=== PATIENT | female | born 1950 | race Two or more races ===

== ENCOUNTER 2017-07-24 07:08 | Outpatient (CLI) | payer OTHER ==
[~2017-07-24 07:08] MED LIST: ASA81 MG; CEFADROXIL500 MG PO; SMZ-TMP DS 800-1 TAB PO; TOPROL XL25 MG; URETRON DS1 TAB PO
== END 2017-07-24 07:27 | disposition home or self-care (01) ==
LOC: LAB 07:08
DX: I49.1 Atrial premature depolarization (principal); I49.3 Ventricular premature depolarization; I11.9 Hypertensive heart disease without heart failure; E78.2 Mixed hyperlipidemia; E56.8 Deficiency of other vitamins; R73.02 Impaired glucose tolerance (oral)

== ENCOUNTER 2017-08-03 15:33 | Outpatient (CLI) | payer OTHER | END 2017-08-03 15:53 | disposition home or self-care (01) | LOC: TOM 15:33 | DX: R91.1 Solitary pulmonary nodule (principal) ==

== ENCOUNTER 2017-09-14 16:48 | Emergency (ER) | payer OTHER ==
[~2017-09-14] VITALS: Ht 167.6 cm; Wt 56.2 kg
[2017-09-14] MEDS ORDERED: TRELEGY ELLIPT1 EACH (17:12)
== END 2017-09-14 19:56 | disposition home or self-care (01) ==
LOC: ER 16:48
DX: S83.8X2A Sprain of other specified parts of left knee, initial encounter (principal); X50.1XXA Overexertion from prolonged static or awkward postures, initial encounter; Y93.01 Activity, walking, marching and hiking; Y92.218 Other school as the place of occurrence of the external cause; Y99.8 Other external cause status

== ENCOUNTER 2017-09-21 07:36 | Outpatient (CLI) | payer OTHER ==
[~2017-09-21 07:36] MED LIST changes: +TRELEGY ELLIPT1 EACH
== END 2017-09-21 07:41 | disposition home or self-care (01) ==
LOC: LAB 07:36
DX: R91.1 Solitary pulmonary nodule (principal); Z20.1 Contact with and (suspected) exposure to tuberculosis

== ENCOUNTER → 2017-10-26 | Outpatient (CLI) | payer OTHER | END | disposition home or self-care (01) | LOC: LAB 15:55 | DX: N39.0 Urinary tract infection, site not specified (principal); D64.9 Anemia, unspecified; R10.13 Epigastric pain; E55.9 Vitamin D deficiency, unspecified ==

== ENCOUNTER → 2017-11-20 | Outpatient (CLI) | payer OTHER | END | disposition home or self-care (01) | LOC: LAB 09:08 | DX: D64.89 Other specified anemias (principal); N39.0 Urinary tract infection, site not specified; R10.9 Unspecified abdominal pain; E03.8 Other specified hypothyroidism; E78.4 Other hyperlipidemia; E55.9 Vitamin D deficiency, unspecified; R80.9 Proteinuria, unspecified; R73.09 Other abnormal glucose; I11.9 Hypertensive heart disease without heart failure; E78.2 Mixed hyperlipidemia; R73.02 Impaired glucose tolerance (oral); E56.8 Deficiency of other vitamins ==

== ENCOUNTER 2017-12-14 09:47 | Outpatient (CLI) | payer OTHER | END 2017-12-14 09:49 | disposition home or self-care (01) | LOC: LAB 09:47 | DX: R97.1 Elevated cancer antigen 125 [CA 125] (principal); N39.0 Urinary tract infection, site not specified ==

== ENCOUNTER → 2017-12-15 | Outpatient (CLI) | payer OTHER | END | disposition home or self-care (01) | LOC: MAMO-SONO 09:15 | DX: Z12.31 Encounter for screening mammogram for malignant neoplasm of breast (principal); N60.11 Diffuse cystic mastopathy of right breast; N60.12 Diffuse cystic mastopathy of left breast; R10.2 Pelvic and perineal pain ==

== ENCOUNTER → 2017-12-23 15:12 | Outpatient (CLI) | payer OTHER | END | disposition home or self-care (01) | LOC: LAB 15:12 | DX: R10.31 Right lower quadrant pain (principal); R10.32 Left lower quadrant pain ==

== ENCOUNTER 2017-12-28 09:08 | Outpatient (CLI) | payer OTHER | END 2017-12-28 09:20 | disposition home or self-care (01) | LOC: MRI 09:08 | DX: R97.1 Elevated cancer antigen 125 [CA 125] (principal); R10.31 Right lower quadrant pain; R10.32 Left lower quadrant pain | CPT/HCPCS: 72196; 74181 ==

== ENCOUNTER 2018-01-20 10:59 | Outpatient (CLI) | payer OTHER | END 2018-01-20 11:01 | disposition home or self-care (01) | LOC: LAB 10:59 | DX: R97.1 Elevated cancer antigen 125 [CA 125] (principal) ==

== ENCOUNTER 2018-03-23 10:20 | Outpatient (CLI) | payer OTHER | END 2018-03-23 10:36 | disposition home or self-care (01) | LOC: LAB 10:20 | DX: E78.2 Mixed hyperlipidemia (principal); I50.32 Chronic diastolic (congestive) heart failure; I34.0 Nonrheumatic mitral (valve) insufficiency; D64.89 Other specified anemias; N39.0 Urinary tract infection, site not specified; R10.84 Generalized abdominal pain; E03.8 Other specified hypothyroidism; E55.9 Vitamin D deficiency, unspecified; R80.8 Other proteinuria; E11.9 Type 2 diabetes mellitus without complications; I11.0 Hypertensive heart disease with heart failure ==

== ENCOUNTER 2018-07-13 15:12 | Outpatient (CLI) | payer OTHER | END 2018-07-13 18:00 | disposition home or self-care (01) | LOC: LAB 15:12 | DX: K72.01 Acute and subacute hepatic failure with coma (principal) ==

== ENCOUNTER 2018-09-11 09:13 | Outpatient (CLI) | payer OTHER | END 2018-09-11 09:22 | disposition home or self-care (01) | LOC: LAB 09:13 | DX: D64.89 Other specified anemias (principal); N39.0 Urinary tract infection, site not specified; R10.9 Unspecified abdominal pain; E03.8 Other specified hypothyroidism; E78.49 Other hyperlipidemia; R80.8 Other proteinuria; E11.9 Type 2 diabetes mellitus without complications; I10 Essential (primary) hypertension; I50.32 Chronic diastolic (congestive) heart failure ==

== ENCOUNTER 2018-09-15 08:44 | Outpatient (CLI) | payer OTHER | END 2018-09-15 12:02 | disposition home or self-care (01) | LOC: LAB 08:44 | DX: A31.0 Pulmonary mycobacterial infection (principal) ==

== ENCOUNTER 2019-01-05 08:07 | Outpatient (CLI) | payer OTHER | END 2019-01-05 08:32 | disposition home or self-care (01) | LOC: LAB 08:07 | DX: E78.2 Mixed hyperlipidemia (principal); E55.9 Vitamin D deficiency, unspecified; M06.4 Inflammatory polyarthropathy; M25.50 Pain in unspecified joint; E78.49 Other hyperlipidemia; M81.0 Age-related osteoporosis without current pathological fracture; E03.8 Other specified hypothyroidism; M54.2 Cervicalgia; I65.8 Occlusion and stenosis of other precerebral arteries; A31.2 Disseminated mycobacterium avium-intracellulare complex (DMAC) ==

== ENCOUNTER 2019-01-26 07:46 | Outpatient (CLI) | payer OTHER | END 2019-01-26 07:52 | disposition home or self-care (01) | LOC: LAB 07:46 | DX: D64.89 Other specified anemias (principal); N39.0 Urinary tract infection, site not specified; R10.84 Generalized abdominal pain; E03.8 Other specified hypothyroidism; E78.49 Other hyperlipidemia; Z98.49 Cataract extraction status, unspecified eye; Z13.6 Encounter for screening for cardiovascular disorders ==

== ENCOUNTER 2019-02-08 08:38 | Outpatient (CLI) | payer OTHER | END 2019-02-08 08:43 | disposition home or self-care (01) | LOC: LAB 08:38 | DX: A31.0 Pulmonary mycobacterial infection (principal); J44.1 Chronic obstructive pulmonary disease with (acute) exacerbation; E78.2 Mixed hyperlipidemia; K76.0 Fatty (change of) liver, not elsewhere classified ==

== ENCOUNTER 2019-07-05 10:12 | Outpatient (CLI) | payer OTHER | END 2019-07-05 10:43 | disposition home or self-care (01) | LOC: LAB 10:12 | DX: A31.0 Pulmonary mycobacterial infection (principal); J44.1 Chronic obstructive pulmonary disease with (acute) exacerbation ==

== ENCOUNTER 2019-07-06 09:44 | Outpatient (CLI) | payer OTHER | END 2019-07-06 09:52 | disposition home or self-care (01) | LOC: LAB 09:44 | DX: A31.0 Pulmonary mycobacterial infection (principal); J44.1 Chronic obstructive pulmonary disease with (acute) exacerbation ==

== ENCOUNTER 2019-07-12 08:51 | Outpatient (CLI) | payer OTHER | END 2019-07-12 08:58 | disposition home or self-care (01) | LOC: LAB 08:51 | DX: N39.0 Urinary tract infection, site not specified (principal); D64.89 Other specified anemias; E03.8 Other specified hypothyroidism; E78.49 Other hyperlipidemia; E11.9 Type 2 diabetes mellitus without complications; M10.9 Gout, unspecified ==

== ENCOUNTER → 2019-08-10 11:56 | Outpatient (CLI) | payer OTHER | END | disposition home or self-care (01) | LOC: LAB 08-09 12:07 | DX: Z12.11 Encounter for screening for malignant neoplasm of colon (principal) ==

== ENCOUNTER → 2020-05-21 14:54 | Outpatient (CLI) | payer OTHER | END | disposition home or self-care (01) | LOC: LAB 14:54 | PROVIDERS: ATTEND Radiology Diagnostic Radiology | DX: R91.8 Other nonspecific abnormal finding of lung field (principal) ==

== ENCOUNTER 2020-05-22 09:22 | Outpatient (CLI) | payer OTHER | END 2020-05-22 09:41 | disposition home or self-care (01) | LOC: TOM 09:22 | PROVIDERS: ATTEND Internal Medicine Pulmonary Disease | DX: R91.8 Other nonspecific abnormal finding of lung field (principal); R09.02 Hypoxemia; I26.90 Septic pulmonary embolism without acute cor pulmonale | CPT/HCPCS: 71260; Q9965 ==

== ENCOUNTER → 2020-07-07 | Outpatient (CLI) | payer OTHER | END | disposition home or self-care (01) | LOC: LAB 09:26 | PROVIDERS: ATTEND Internal Medicine Pulmonary Disease | DX: A31.2 Disseminated mycobacterium avium-intracellulare complex (DMAC) (principal) ==

== ENCOUNTER 2020-09-29 11:13 | Outpatient (CLI) | payer OTHER | END 2020-09-29 11:21 | disposition home or self-care (01) | LOC: RAD 11:13 | PROVIDERS: ATTEND Allergy & Immunology | DX: J01.90 Acute sinusitis, unspecified (principal) ==

== ENCOUNTER 2021-07-26 10:52 | Outpatient (CLI) | payer OTHER | END 2021-07-26 10:53 | disposition home or self-care (01) | LOC: NUCLEAR 10:52 | PROVIDERS: ATTEND Internal Medicine Pulmonary Disease | DX: J44.9 Chronic obstructive pulmonary disease, unspecified (principal); A31.0 Pulmonary mycobacterial infection ==

== ENCOUNTER → 2022-02-12 | Outpatient (CLI) | payer OTHER | END | disposition home or self-care (01) | LOC: NUCLEAR 02-05 09:00 | PROVIDERS: ATTEND Family Medicine | DX: M85.80 Other specified disorders of bone density and structure, unspecified site (principal); Z91.018 Allergy to other foods ==

== ENCOUNTER 2022-02-26 15:40 | Outpatient (CLI) | payer OTHER | END 2022-02-26 15:44 | disposition home or self-care (01) | LOC: RAD 15:40 | PROVIDERS: ATTEND Family Medicine | DX: M54.51 Vertebrogenic low back pain (principal) ==

== ENCOUNTER 2022-02-28 09:53 | Outpatient (CLI) | payer OTHER | END 2022-02-28 10:03 | disposition home or self-care (01) | LOC: MRI 09:53 | PROVIDERS: ATTEND Family Medicine | DX: M54.51 Vertebrogenic low back pain (principal); M54.16 Radiculopathy, lumbar region | CPT/HCPCS: 72148 ==

== ENCOUNTER 2022-05-19 10:07 | Outpatient (CLI) | payer OTHER | END 2022-05-19 10:15 | disposition home or self-care (01) | LOC: MAMO-SONO 10:07 | DX: N60.11 Diffuse cystic mastopathy of right breast (principal); N60.12 Diffuse cystic mastopathy of left breast ==

== ENCOUNTER 2022-06-03 13:38 | Outpatient (CLI) | payer OTHER | END 2022-06-03 13:48 | disposition home or self-care (01) | LOC: SONOGRAMA 13:38 | PROVIDERS: ATTEND Obstetrics & Gynecology Gynecology | DX: N60.11 Diffuse cystic mastopathy of right breast (principal); N60.12 Diffuse cystic mastopathy of left breast ==

== ENCOUNTER 2022-06-24 20:00 | Emergency (ER) | payer OTHER ==
[~2022-06-24] VITALS: Ht 167.6 cm; Wt 51.7 kg
== END 2022-06-24 21:51 | disposition home or self-care (01) ==
LOC: ER 20:00
DX: S01.122A Laceration with foreign body of left eyelid and periocular area, initial encounter (principal); W45.8XXA Other foreign body or object entering through skin, initial encounter; W22.8XXA Striking against or struck by other objects, initial encounter; Y93.B9 Activity, other involving muscle strengthening exercises; Y92.9 Unspecified place or not applicable; Z91.018 Allergy to other foods

== ENCOUNTER 2022-07-05 16:39 | Emergency (ER) | payer OTHER ==
[~2022-07-05] VITALS: Ht 167.6 cm; Wt 49.9 kg
== END 2022-07-05 18:17 | disposition home or self-care (01) ==
LOC: ER 16:39
DX: Z48.02 Encounter for removal of sutures (principal)

== ENCOUNTER 2023-03-12 11:01 | Outpatient (CLI) | payer OTHER | END 2023-03-12 11:04 | disposition home or self-care (01) | LOC: SONOGRAMA 11:01 | PROVIDERS: ATTEND Obstetrics & Gynecology Gynecology | DX: R10.2 Pelvic and perineal pain (principal) ==

== ENCOUNTER 2023-07-22 10:52 | Outpatient (CLI) | payer OTHER | END 2023-07-22 10:54 | disposition home or self-care (01) | LOC: MAMO-SONO 10:52 | PROVIDERS: ATTEND Obstetrics & Gynecology Gynecology | DX: N60.11 Diffuse cystic mastopathy of right breast (principal); N60.12 Diffuse cystic mastopathy of left breast; Z12.31 Encounter for screening mammogram for malignant neoplasm of breast ==

== ENCOUNTER 2024-01-19 13:53 | Outpatient (CLI) | payer OTHER | END 2024-01-19 14:09 | disposition home or self-care (01) | LOC: TOM 13:53 | PROVIDERS: ATTEND Specialist | DX: M21.70 Unequal limb length (acquired), unspecified site (principal) ==

== ENCOUNTER 2024-01-22 10:40 | Outpatient (CLI) | payer OTHER | END 2024-01-22 10:41 | disposition home or self-care (01) | LOC: RAD 10:40 | PROVIDERS: ATTEND Internal Medicine Pulmonary Disease | DX: J44.9 Chronic obstructive pulmonary disease, unspecified (principal) ==

== ENCOUNTER 2024-04-21 13:35 | Outpatient (CLI) | payer OTHER | END 2024-04-21 13:47 | disposition home or self-care (01) | LOC: NUCLEAR 13:35 | DX: Z13.820 Encounter for screening for osteoporosis (principal); M81.0 Age-related osteoporosis without current pathological fracture ==

== ENCOUNTER 2024-05-04 12:22 | Outpatient (CLI) | payer OTHER | END 2024-05-04 12:40 | disposition home or self-care (01) | LOC: MRI 12:22 | PROVIDERS: ATTEND Family Medicine | DX: M54.51 Vertebrogenic low back pain (principal) | CPT/HCPCS: 72148 ==

== ENCOUNTER 2024-05-22 13:21 | Inpatient (IN) | payer OTHER ==
[~2024-05-22] VITALS: Ht 165.1 cm; Wt 49.9 kg
[2024-05-22 15:17] LABS: HEMATOCRIT 39.3 % (36.0-45.00); HEMOGLOBIN 13.3 g/dL (12.0-15.00); MEAN CELL VOLUME 87.5 fL (80.00-100.00); MEAN CORPUSCULAR HEMOGLOBIN 29.6 pg (27.00-32.0); MEAN CORPUSCULAR HGB CONC 33.8 g/dl (32.0-36.0); PLATELET COUNT 200 K/uL (150-450); RED BLOOD COUNT 4.49 M/uL (4.00-6.00)
[2024-05-22 15:42] LABS: ALBUMIN 3.2 gm/dL (3.4-5.0); BILIRUBIN TOTAL 0.43 mg/dL (0.3-1.2); CALCIUM 8.8 mg/dL (8.5-10.1); CREATININE SERUM 1.15 mg/dL (0.55-1.02); GFR 46.25; POTASSIUM 4.7 mEq/L (3.5-5.1); TOTAL PROTEIN 6.2 gm/dL (6.4-8.2)
[2024-05-22 15:46] LABS: INR 1.07; PARTIAL THROMBOPLASTIN TIME 27.9 SECONDS (22.0-34.0); PROTHROMBIN TIME 11.6 SECONDS (9.0-11.5)
[2024-05-22 16:02] LABS: ABG PH 7.422 (7.35-7.45); ABG PO2 79.8 mmHg (80-100); ABG pCO2 40.3 mmHg (35-45); BASE EXCESS 1.2 mmol/l; BICARBONATE 25.7 mmol/l (23-25)
[2024-05-22 16:03] LABS: Tco2 26.9 mmol/l; allen test SATISFACTORY; o2 21 %; puncture site RADIAL RIGHT
[2024-05-22 16:19] LABS: PH,URINE 5.5 (5.0-8.0); URINE APPEARANCE Clear; URINE BILIRRUBIN Negative (NEGATIVE); URINE BLOOD Negative; URINE COLOR Yellow; URINE GLUCOSE Negative (NEGATIVE); URINE KETONE Negative (NEGATIVE); URINE LEUKOCYTE Negative; URINE NITRATE Negative; URINE PROTEIN Negative (NEGATIVE); URINE UROBILINOGEN 0.2 E.U./dl
[2024-05-22 16:26] LABS: URINE BACTERIA 9.7 uL (0.0-1933); URINE EPITHELIAL CELLS 8.5 uL (0.0-38.8); URINE RBC 5.7 uL (0.0-20.8)
[2024-05-22] MEDS ORDERED: 0.9 % SODIUM CHLORIDE 1,000 ML IV SCH (23:00)
[2024-05-22] MEDS ORDERED: ONDANSETRON HCL 4 MG in 0.9 % SODIUM CHLORIDE 50 ML IV PRN (23:00)
[2024-05-22] MEDS ORDERED: ACETAMINOPHEN 500 MG GEL..CAP PO PRN (23:00)
[2024-05-23] MEDS ORDERED: PIPERACILLIN/TAZOBACTAM SODIUM 3.375 GM in DEXTROSE 5 % IN WATER 100 ML IV SCH
[2024-05-23 04:06] LABS: INR 1.07; PARTIAL THROMBOPLASTIN TIME 27.7 SECONDS (22.0-34.0); PROTHROMBIN TIME 11.6 SECONDS (9.0-11.5)
[2024-05-23 05:02] VITALS: BP 105/70; O2SAT 96
[2024-05-23] MEDS ORDERED: FAMOTIDINE/PF 20 MG in 0.9 % SODIUM CHLORIDE 8 ML IV PUSH SCH (09:00)
[2024-05-23] MEDS ORDERED: METOPROLOL SUCCINATE 25 MG TAB.SR.24H PO SCH (09:00)
[2024-05-23] MEDS ORDERED: ENOXAPARIN SODIUM 40 MG/0.4 ML SYRINGE SUBCUTANEO SCH (09:00)
[2024-05-23 09:55] VITALS: BP 121/83; O2SAT 99
[2024-05-23] MEDS ORDERED: ALBUTEROL SULFATE 3 ML/2.5 MG AMPUL.NEB IH SCH (12:00)
[2024-05-23] MEDS ORDERED: METHYLPREDNISOLONE SOD SUCC 40 MG VIAL IV SCH (13:00)
[2024-05-23 17:20] VITALS: BP 97/64
[2024-05-24 01:09] VITALS: BP 95/61; O2SAT 95
[2024-05-24 08:10] VITALS: BP 97/62; O2SAT 97
[2024-05-24 09:56] LABS: HEMATOCRIT 38.6 % (36.0-45.00); HEMOGLOBIN 13.1 g/dL (12.0-15.00); MEAN CELL VOLUME 87.1 fL (80.00-100.00); MEAN CORPUSCULAR HEMOGLOBIN 29.6 pg (27.00-32.0); PLATELET COUNT 199 K/uL (150-450); RED BLOOD COUNT 4.43 M/uL (4.00-6.00); RED CELL DISTRIBUTION WIDTH 15.3 % (11.5-14.5)
[2024-05-24 13:02] LABS: PH,URINE 5.5 (5.0-8.0); URINE APPEARANCE Cloudy; URINE BILIRRUBIN Negative (NEGATIVE); URINE BLOOD Negative; URINE COLOR Yellow; URINE GLUCOSE Negative (NEGATIVE); URINE KETONE Trace (NEGATIVE); URINE LEUKOCYTE Negative; URINE NITRATE Negative; URINE PROTEIN Negative (NEGATIVE)
[2024-05-24 13:05] LABS: URINE BACTERIA 17.1 uL (0.0-1933); URINE EPITHELIAL CELLS 21.5 uL (0.0-38.8); URINE WBC 4.7 uL (0.0-23.2)
[2024-05-24 17:33] VITALS: BP 116/76
[2024-05-24 21:37] LABS: RH POSITIVE
[2024-05-25 01:52] VITALS: BP 93/63; O2SAT 94
[2024-05-25 08:45] VITALS: BP 96/61; O2SAT 93
[2024-05-25] MEDS ORDERED: METOPROLOL SUCCINATE 50 MG TAB.SR.24H PO SCH (18:44)
[2024-05-25 19:02] VITALS: BP 124/81
[2024-05-25 20:08] LABS: afb smear Positive (.); afb spe proc Concentration (.)
[2024-05-26 02:38] VITALS: BP 110/73; O2SAT 99
[2024-05-26 06:12] LABS: HEMATOCRIT 36.8 % (36.0-45.00); HEMOGLOBIN 12.4 g/dL (12.0-15.00); MEAN CELL VOLUME 87.2 fL (80.00-100.00); MEAN CORPUSCULAR HEMOGLOBIN 29.4 pg (27.00-32.0); MEAN CORPUSCULAR HGB CONC 33.8 g/dl (32.0-36.0); PLATELET COUNT 209 K/uL (150-450); RED BLOOD COUNT 4.21 M/uL (4.00-6.00); RED CELL DISTRIBUTION WIDTH 15.3 % (11.5-14.5)
[2024-05-26 06:39] LABS: ALBUMIN 3.1 gm/dL (3.4-5.0); BILIRUBIN TOTAL 0.69 mg/dL (0.3-1.2); C-REACTIVE PROTEIN 0.99 MG/DL (0.00-0.29); CALCIUM 8.5 mg/dL (8.5-10.1); CREATININE SERUM 0.94 mg/dL (0.55-1.02); GFR 58.37; GLOBULINA 3.1 G/DL (2.4-3.5); MAGNESIUM 1.9 mg/dL (1.8-2.4); PHOSPHOROUS 3.4 mg/dL (2.5-4.9); POTASSIUM 4.53 mEq/L (3.5-5.1); TOTAL PROTEIN 6.2 gm/dL (6.4-8.2)
[2024-05-26] MEDS ORDERED: METOPROLOL SUCCINATE 50 MG TAB.SR.24H PO SCH (09:00)
[2024-05-26 12:55] VITALS: BP 134/87; O2SAT 97
[2024-05-26 16:00] VITALS: BP 111/76; O2SAT 96
[2024-05-26] MEDS ORDERED: AZITHROMYCIN 500 MG VIAL IV SCH (17:00)
[2024-05-26 18:04] LABS: quan ag 0.03 IU/mL (.); quan ag 0.04 IU/mL (.); quan mito > 10.00 IU/mL (.); quant nil 0.63 IU/mL (.)
[2024-05-26 20:08] LABS: afb smear Negative (.); afb spe proc Concentration (.)
[2024-05-26] MEDS ORDERED: ETHAMBUTOL HCL 400 MG TABLET PO SCH (21:00)
[2024-05-26] MEDS ORDERED: METHYLPREDNISOLONE SOD SUCC 40 MG VIAL IV SCH (21:00)
[2024-05-27] VITALS: BP 126/80; O2SAT 96
[2024-05-27] MEDS ORDERED: RIFAMPIN 300 MG CAPSULE PO SCH (09:00)
[2024-05-27] MEDS ORDERED: DIBUCAINE 30 GM TUBE TOP SCH (09:13)
[2024-05-27 16:00] VITALS: BP 140/82; O2SAT 95
[2024-05-27] MEDS ORDERED: LACTOBACILLUS ACIDOPHILUS 1 CAP CAP PO SCH (17:00)
[2024-05-28 01:11] VITALS: BP 122/81; O2SAT 98
[2024-05-28 09:06] VITALS: BP 123/83; O2SAT 95
[2024-05-28] MEDS ORDERED: VANCOMYCIN HCL 125 MG/7.5 ML BLIST.PACK PO SCH (12:00)
[2024-05-28 16:31] VITALS: BP 128/91; O2SAT 96
[2024-05-29 00:32] VITALS: BP 122/80; O2SAT 96
[2024-05-29 11:28] VITALS: BP 131/67; O2SAT 100
[2024-05-29 16:26] VITALS: BP 143/82; O2SAT 99
[2024-05-30 00:28] VITALS: BP 143/79; O2SAT 99
[2024-05-30 10:27] VITALS: BP 126/83; O2SAT 98
[2024-05-30 17:02] VITALS: BP 121/83; O2SAT 91
[2024-05-31 01:26] VITALS: BP 127/83; O2SAT 97
[2024-05-31 08:00] VITALS: BP 103/67; O2SAT 95
[2024-05-31 08:38] LABS: HEMATOCRIT 39.8 % (36.0-45.00); HEMOGLOBIN 13.6 g/dL (12.0-15.00); MEAN CELL VOLUME 86.1 fL (80.00-100.00); MEAN CORPUSCULAR HEMOGLOBIN 29.4 pg (27.00-32.0); MEAN CORPUSCULAR HGB CONC 34.1 g/dl (32.0-36.0); PLATELET COUNT 206 K/uL (150-450); RED BLOOD COUNT 4.63 M/uL (4.00-6.00); RED CELL DISTRIBUTION WIDTH 15.2 % (11.5-14.5)
[2024-05-31 10:04] LABS: ALBUMIN 2.9 gm/dL (3.4-5.0); BILIRUBIN TOTAL 0.81 mg/dL (0.3-1.2); CALCIUM 8.3 mg/dL (8.5-10.1); CREATININE SERUM 0.87 mg/dL (0.55-1.02); GFR 63.82; GLOBULINA 2.6 G/DL (2.4-3.5); MAGNESIUM 1.8 mg/dL (1.8-2.4); PHOSPHOROUS 3.4 mg/dL (2.5-4.9); POTASSIUM 4.33 mEq/L (3.5-5.1); TOTAL PROTEIN 5.5 gm/dL (6.4-8.2)
[2024-05-31 10:15] LABS: C-REACTIVE PROTEIN 2.33 MG/DL (0.00-0.29)
[2024-06-03 14:41] LABS: afb smear Negative (.); afb spe proc Concentration (.)
== END 2024-05-31 14:37 | disposition home or self-care (01) | DRG 178 ==
LOC: ER 13:23 → MEDJ 23:43 → SURH 05-26 11:28
PROVIDERS: General Practice; Internal Medicine; Internal Medicine Infectious Disease; ADMIT Internal Medicine; ATTEND Internal Medicine
PROC: BB24ZZZ Computerized Tomography (CT Scan) of Bilateral Lungs (ICD-10-PCS; principal; 2024-05-22)
PROC: BW2 Imaging, Anatomical Regions, Computerized Tomography (CT Scan) (ICD-10-PCS; 2024-05-22)
PROC: B246ZZZ Ultrasonography of Right and Left Heart (ICD-10-PCS; 2024-05-23)
DX: A31.0 Pulmonary mycobacterial infection (principal); N17.8 Other acute kidney failure; R04.2 Hemoptysis; J47.9 Bronchiectasis, uncomplicated

== ENCOUNTER 2024-11-17 13:17 | Outpatient (CLI) | payer OTHER | END 2024-11-17 13:24 | disposition home or self-care (01) | LOC: RAD 13:17 | PROVIDERS: ATTEND Family Medicine | DX: M19.042 Primary osteoarthritis, left hand (principal) ==

== ENCOUNTER 2025-05-12 10:11 | Outpatient (CLI) | payer OTHER | END 2025-05-12 10:18 | disposition home or self-care (01) | LOC: TOM 10:11 | PROVIDERS: ATTEND Internal Medicine Pulmonary Disease | DX: J44.9 Chronic obstructive pulmonary disease, unspecified (principal); A31.1 Cutaneous mycobacterial infection ==

== ENCOUNTER 2025-06-02 15:43 | Emergency (ER) | payer OTHER ==
[~2025-06-02] VITALS: Ht 165.1 cm; Wt 86.2 kg
[2025-06-02] MEDS ORDERED: SILVADENE20 GM TOP (20:08)
== END 2025-06-03 01:25 | disposition home or self-care (01) ==
LOC: ER 15:44
DX: S01.511A Laceration without foreign body of lip, initial encounter (principal); S69.80XA Other specified injuries of unspecified wrist, hand and finger(s), initial encounter; S89.80XA Other specified injuries of unspecified lower leg, initial encounter; T14.8XXA Other injury of unspecified body region, initial encounter; W19.XXXA Unspecified fall, initial encounter; Y93.89 Activity, other specified; Y92.89 Other specified places as the place of occurrence of the external cause; Y99.8 Other external cause status; I10 Essential (primary) hypertension